=== PATIENT | male | born 1960 | race Caucasian/White ===

== ENCOUNTER → 2018-07-09 | Day surgery (SDC) | payer BC ==
[2018-07-06 08:18] VITALS: BMI 30.2
[~2018-07-09] MED LIST: GLYCOPYRROLATE 0.2 MG/ML 2 ML VIAL ONE; LACTATED RINGERS 1,000 ML IV SCH; LIDOCAINE 1% 20 ML VIAL (10MG/ML) FOR IV START INTRADERMA PRN; LIDOCAINE 1% INJ 10MG/ML (20 ML MDV) ONE; MIDAZOLAM (PF) 2 MG/2 ML VIAL IV PRN; PROPOFOL 10 MG/ML 20 ML VIAL IV ONE
[2018-07-09 12:56] VITALS: TEMP 98.5
--- NOTE | 2018-07-09 13:46 | P.PCN ---
Date of Procedure: 07/09/18 Procedure(s) Performed: Procedures: 1. Esophagogastroduodenoscopy and biopsy. 2. Total colonoscopy. Preoperative diagnosis: History of esophagitis and diverticulitis. Postoperative diagnosis: 1. Hiatal hernia with complete healing of the previously described LA grade D esophagitis. 2. Short segment of Feng's esophagus. 3. No esophageal strictures. 4. Biopsies obtained from the Feng's segment. 5. Sigmoid diverticulosis with no evidence of acute diverticulitis, strictures, significant polyps or tumors. Preparation: HalfLytely prep. Sedation: Was provided by anesthesia. Brief clinical history: The patient is a 57 year old male who had an upper endoscopy in March 2018 for epigastric pain and dysphagia and was found to have a moderately sized hiatal hernia with high-grade distal esophagitis and possible Feng's esophagus. The patient is scheduled for this evaluation following intensive medical therapy to assess for the healing of his esophagitis , rule out Feng's esophagus and guide therapy. He is also scheduled for the colonoscopy at the same time because of history of diverticulitis. Procedure: With the patient on his left lateral decubitus position and after informed consent and adequate sedation, I passed the Olympus-GIF H190 video upper endoscope through the cricopharyngeus down the esophagus. The GE junction was irregular and started around 35 cm from the incisors and there was a short segment of Feng's. The previously described LA grade D distal esophagitis has completely healed and there was a short segment of Feng's measuring less than 2 cm. There were no strictures. The endoscope was then passed through a 2-3 cm sliding hiatal hernia into the rest of the stomach which was insufflated with air and inspected in detail including the retroflex view in the cardia. No obvious abnormalities were seen in the stomach. Pyloric channel, duodenal bulb, post bulbar area and descending duodenum appeared healthy. I obtained biopsies from the Feng's segment then the endoscope was withdrawn and I proceeded with the colonoscopy. Perianal area did not show any fissures or fistulas. There were no masses felt on digital rectal examination. The Olympus CFH 190L video colonoscope was then inserted in the rectum in the usual fashion and advanced to the cecum. There were multiple diverticular orifices seen scattered in the sigmoid but I saw no evidence of acute diverticulitis or strictures. The mucosa appeared healthy. No obvious polyps or tumors were seen. The preparation was less than ideal on the right side and cecum. I retroflexed the endoscope in the rectum before the endoscope was withdrawn. The patient tolerated the procedure well. Plan: The patient was reassured. I anticipate repeating his upper endoscopy in 2-3 years and we could consider repeating his colonoscopy at the same time after a 2 day prep before we go for a longer interval screening colonoscopy schedule. He will follow up with you as planned and I will keep you updated on his progress. Condition:
[2018-07-09 14:00] VITALS: BP 151/93; PULSE 65; RESP 18
== END ==
LOC: ORWHC2ENDO 12:38
DX: K22.70 Barrett's esophagus without dysplasia (principal); K44.9 Diaphragmatic hernia without obstruction or gangrene; K57.30 Diverticulosis of large intestine without perforation or abscess without bleeding; Z87.19 Personal history of other diseases of the digestive system; K21.9 Gastro-esophageal reflux disease without esophagitis; I10 Essential (primary) hypertension; E78.5 Hyperlipidemia, unspecified; Z79.899 Other long term (current) drug therapy
CPT/HCPCS: 88305; 45378; 43239; J2001; J2704

== ENCOUNTER → 2021-06-18 | Outpatient (CLI) | payer BC ==
--- NOTE | 2021-06-18 10:25 | CTL ---
EXAMINATION TYPE: CT Low Dose Lung DATE OF EXAM ORDERED: 06/18/2021 HISTORY: 60-year-old male Personal history of tobacco use. Lung cancer screening CT DLP: 125.[address] CTDI: 3.5 mGy Automated exposure control for dose reduction was used. SCREENING VISIT: Baseline COMPARISON: None TECHNIQUE: Low dose computed tomography scan was performed through the chest with coronal and sagitta l reconstructions. CT DIAGNOSTIC QUALITY: Satisfactory FINDINGS: Heart is normal size without pericardial effusion. LAD and circumflex coronary artery calcifications are present. Aorta normal caliber mild atherosclerotic arch calcifications. No thoracic lymphadenopathy by CT size criteria. Minimal emphysematous change. Tiny calcified granuloma posterior right upper lobe, axial image 47. 3 mm right upper lobe pulmonary nodule, axial image 85. Irregular nodule measuring 1.1 x 0.6 cm along the anterior aspect of the minor fissure, axial image 1 46. The location and triangular appearance on coronal series makes this area less suspicious. 3 month follow-up recommended. 6 mm subpleural pulmonary nodule medial left upper lobe, axial image 103 5 mm pulmonary nodule left mid lung along the major fissure has a trident appearance suggesting a valeriano ign pleural lymph node. Tiny hiatal hernia. Mild diverticular change in the visualized colon. Bones: Mild anterior endplate spondylosis midthoracic spine. IMPRESSION: 1. LungRADS Category 4A (Suspicious, 5-15% chance of malignancy). An irregular 1.1 x 0.6 cm anterior right midlung pulmonary nodule on baseline screening. Its location along the minor fissure makes this less suspicious. Additional few pulmonary nodules measuring up to 6 mm. Three-month follow-up low-do se CT chest. 2. COPD with minimal emphysema. Recommend smoking cessation. 3. CAD with LAD and circumflex coronary artery calcifications. CT LUNG RAD AND CT CHEST RECOMMENDATION: Lung-Rad 4A Suspicious: Follow-up 3 month LDCT or PET/CT may be used when there is a > 8 mm solid component.
== END | disposition home or self-care (01) ==
LOC: RADCTMAIN 07:38
PROVIDERS: ATTEND Family Medicine
DX: Z12.2 Encounter for screening for malignant neoplasm of respiratory organs (principal); R91.1 Solitary pulmonary nodule; J43.9 Emphysema, unspecified; I25.10 Atherosclerotic heart disease of native coronary artery without angina pectoris; Z87.891 Personal history of nicotine dependence
CPT/HCPCS: 71271

== ENCOUNTER → 2022-01-31 | Outpatient (CLI) | payer BC ==
--- NOTE | 2022-01-31 20:37 | CT ---
EXAMINATION TYPE: CT chest wo con DATE OF EXAM: 01/31/2022 COMPARISON: Low-dose lung screening CT June 18 2021 HISTORY: Pulmonary Nodule, prior abnormal CT CT DLP: 520.8 mGycm. Automated Exposure Control for Dose Reduction was Utilized. TECHNIQUE: CT scan of the thorax is performed without IV contrast. FINDINGS: LUNGS: Stable 6 x 5 mm nodule in the right mid lung appears to localize to the fissure on sagittal im ages consistent with benign intrapulmonary lymph node. Just superior and anterior to this stable 1.2 x 0.4 cm elongated nodule localized to the minor fissure on coronal images favoring benign intrapulmo nary lymph node. Stable 5 mm medial left upper lobe nodule axial image 24. No new or enlarging greate r than 5 mm noncalcified pulmonary nodules or masses identified. There is no pleural effusion or pneu mothorax seen. The tracheobronchial tree is patent. MEDIASTINUM: Lack of IV contrast is noted to limit evaluation for mediastinal and especially hilar ad enopathy. There are no definitive greater than 1 cm mediastinal lymph nodes. No cardiomegaly or per icardial effusion is seen. Moderate three-vessel coronary artery calcifications are redemonstrated. OTHER: Slight asymmetric thickening to the left adrenal gland favoring benign lipid rich hyperplasia is redemonstrated. Some diverticula near hepatic flexure redemonstrated. IMPRESSION: Stable small nodules favors benign etiology. No new or enlarging nodules identified.
== END | disposition home or self-care (01) ==
LOC: RADCTMAIN 17:26
PROVIDERS: ATTEND Internal Medicine
DX: R91.1 Solitary pulmonary nodule (principal)
CPT/HCPCS: 71250